=== PATIENT | male | born 1970 | race Caucasian/White ===

== ENCOUNTER 2018-06-04 02:17 | Emergency (ER) | payer SELFPAY ==
--- NOTE | 2018-06-04 02:33 | EDM.PDOC ---
ED HPI GENERAL MEDICAL PROBLEM - General Stated Complaint: ABD PAIN [id number] Time Seen by Provider: 06/04/18 02:25 Source of Information: Reports: Patient History Limitations: Reports: No Limitations - History of Present Illness INITIAL COMMENTS - FREE TEXT/NARRATIVE: This 47 yo male patient reports to the ED with lower abdominal pain. The patient reports that his symptoms started yesterday in the afternoon and have continued to get worse over the past 12 hours. The patient reports that he did take 3 Colace pills, but has not had any change in his symptoms. The patient reports being constipated about 10 years ago with similar symptoms. The patient reports he had a bowel movement on Sunday, but does not recall having one since that time. The patient reports most of his pain in in the left lower abdomen and left flank, but he also has some pain in the right lower quadrant. The patient reports no previous abdominal surgeries and no history of kidney stones. Onset Date: 06/03/18 Onset Time: 14:00 Duration: Constant, Getting Worse Location: Reports: Abdomen (lower abdomen), Back (left lower back) Quality: Reports: Ache, Dull Severity: Severe Improves with: Reports: None Worsens with: Reports: Other (palpation), Movement Context: Reports: Other Treatments [employer] UP MECH[employer]IC: Reports: Other Medication(s) (Colase) Left Lower Abdomen Pain Score (Numeric/FACES): 9 - Related Data Allergies Allergy/AdvReac Type Severity Reaction Status Date / Time No Known Allergies Allergy Verified 06/04/18 02:34 Home Meds: Home Meds Simvastatin 20 mg PO DAILY 04/03/15 [History] Triamterene/Hydrochlorothiazid [Triamterene-HCTZ 37.5-25 MG] 1 tab PO DAILY [History] metFORMIN [Glucophage] 500 mg PO DAILY 06/04/18 [History] ED ROS GENERAL - Review of Systems Review Of Systems: ROS reveals no pertinent complaints other than HPI. ED EXAM, GI/ABD - Physical Exam Exam: See Below Exam Limited By: No Limitations General Appearance: Alert, WD/WN, Moderate Distress Eyes: Bilateral: Normal Appearance, EOMI Ears: Normal External Exam, Normal Canal, Hearing Grossly Normal, Normal TMs Nose: Normal Inspection, Normal Mucosa, No Blood Throat/Mouth: Normal Inspection, Normal Lips, Normal Teeth, Normal Gums, Normal Oropharynx, Normal Voice, No Airway Compromise Head: Atraumatic, Normocephalic Neck: Normal Inspection, Supple, Non-Tender, Full Range of Motion Respiratory/Chest: No Respiratory Distress, Lungs Clear, Normal Breath Sounds, No Accessory Muscle Use, Chest Non-Tender Cardiovascular: Normal Peripheral Pulses, Regular Rate, Rhythm, No Edema, No Gallop, No JVD, No Murmur, No Rub GI/Abdominal Exam: Normal Bowel Sounds, Guarding, Tender (lower abdomen (left greater than right)) (Male) Exam: Deferred Rectal (Males) Exam: Deferred Back Exam: CVA Tenderness (L) Extremities: Normal Inspection, Normal Range of Motion, Non-Tender, Normal Capillary Refill, No Pedal Edema Neurological: Alert, Oriented, CN II-XII Intact, Normal Cognition Psychiatric: Normal Affect, Normal Mood Skin Exam: Warm, Dry, Intact, Normal Color, No Rash Lymphatic: No Adenopathy Course - Vital Signs Last Recorded V/S: Last Vital Signs Temp 37.1 C 06/04/18 04:44 Pulse 93 06/04/18 04:44 Resp 19 06/04/18 04:44 BP 126/82 06/04/18 04:44 Pulse Ox 100 06/04/18 04:44 - Orders/Labs/Meds Orders: Active Orders 24 hr Category Date Time Status CULTURE BLOOD [BC] Stat Lab 06/04/18 03:19 Received Labs: Laboratory Tests 06/04/18 06/04/18 06/04/18 Range/Units 02:21 02:32 02:32 WBC 16.7 H (5.0-10.0) 10^3/uL RBC 4.30 L (4.6-6.2) 10^6/uL Hgb 13.0 L (14.0-18.0) g/dL Hct 39.3 L (40.0-54.0) % MCV 91.4 (80-100) fL MCH 30.2 (27.0-34.0) pg MCHC 33.1 (33.0-35.0) g/dL Plt Count 246 (150-450) 10^3/uL Neut % (Auto) 81.8 H (42.2-75.2) % Lymph % (Auto) 8.0 L (20.5-50.1) % [place] % (Auto) 9.8 H (2-8) % Eos % (Auto) 0.2 L (1.0-3.0) % Baso % (Auto) 0.2 (0.0-1.0) % Sodium (135-145) mmol/L Potassium (3.6-5.0) mmol/L Chloride (101-111) mmol/L Carbon Dioxide (21.0-31.0) mmol/L Anion Gap BUN (7-18) mg/dL Creatinine (0.6-1.3) mg/dL Est Cr Clr Drug Dosing mL/min Estimated GFR (MDRD) BUN/Creatinine Ratio Glucose (74-105) mg/dL Lactic Acid (0.5-2.2) mmol/L Calcium (8.4-10.2) mg/dl Total Bilirubin (0.2-1.0) mg/dL AST (10-42) IU/L ALT (10-60) IU/L Alkaline Phosphatase (42-121) IU/L Total Protein (6.7-8.2) g/dl Albumin (3.2-5.5) g/dl Globulin Albumin/Globulin Ratio Amylase 46 (28-100) U/L Lipase 24 (22-51) U/L Urine Color Dark yellow (YELLOW) Urine Appearance Cloudy (CLEAR) Urine pH 6.5 (5.0-9.0) Ur Specific Bromide 1.020 (1.005-1.030) Urine Protein 30 H (NEGATIVE) Urine Glucose (UA) Negative (NEGATIVE) Urine Ketones Negative (NEGATIVE) Urine Occult Blood Negative (NEGATIVE) Urine Nitrite Negative (NEGATIVE) Urine Bilirubin Small H (NEGATIVE) Urine Urobilinogen 4.0 H (0.2-1.0) mg/dL Ur Leukocyte Esterase Negative (NEGATIVE) Urine RBC 0-5 /HPF Urine WBC 5-10 H (0-5/HPF) /HPF Ur Epithelial Cells Rare /HPF Calcium Oxalate Crystal Rare /HPF Amorphous Sediment Many (0/HPF) /HPF Urine Bacteria Rare (0-FEW/HPF) /HPF Urine Mucus Few H /LPF 06/04/18 06/04/18 Range/Units 02:32 03:19 WBC (5.0-10.0) 10^3/uL RBC (4.6-6.2) 10^6/uL Hgb (14.0-18.0) g/dL Hct (40.0-54.0) % MCV (80-100) fL MCH (27.0-34.0) pg MCHC (33.0-35.0) g/dL Plt Count (150-450) 10^3/uL Neut % (Auto) (42.2-75.2) % Lymph % (Auto) (20.5-50.1) % [place] % (Auto) (2-8) % Eos % (Auto) (1.0-3.0) % Baso % (Auto) (0.0-1.0) % Sodium 134 L (135-145) mmol/L Potassium 3.8 (3.6-5.0) mmol/L Chloride 101 (101-111) mmol/L Carbon Dioxide 24.0 (21.0-31.0) mmol/L Anion Gap 12.8 BUN 14 (7-18) mg/dL Creatinine 0.7 (0.6-1.3) mg/dL Est Cr Clr Drug Dosing 160.17 mL/min Estimated GFR (MDRD) > 60 BUN/Creatinine Ratio 20.00 Glucose 160 H (74-105) mg/dL Lactic Acid 1.9 (0.5-2.2) mmol/L Calcium 10.1 (8.4-10.2) mg/dl Total Bilirubin 1.4 H (0.2-1.0) mg/dL AST 38 (10-42) IU/L ALT 32 (10-60) IU/L Alkaline Phosphatase 58 (42-121) IU/L Total Protein 7.1 (6.7-8.2) g/dl Albumin 4.1 (3.2-5.5) g/dl Globulin 3.0 Albumin/Globulin Ratio 1.37 Amylase (28-100) U/L Lipase (22-51) U/L Urine Color (YELLOW) Urine Appearance (CLEAR) Urine pH (5.0-9.0) Ur Specific Bromide (1.005-1.030) Urine Protein (NEGATIVE) Urine Glucose (UA) (NEGATIVE) Urine Ketones (NEGATIVE) Urine Occult Blood (NEGATIVE) Urine Nitrite (NEGATIVE) Urine Bilirubin (NEGATIVE) Urine Urobilinogen (0.2-1.0) mg/dL Ur Leukocyte Esterase (NEGATIVE) Urine RBC /HPF Urine WBC (0-5/HPF) /HPF Ur Epithelial Cells /HPF Calcium Oxalate Crystal /HPF Amorphous Sediment (0/HPF) /HPF Urine Bacteria (0-FEW/HPF) /HPF Urine Mucus /LPF Meds: Medications Discontinued Medications Generic Name Dose Route Start Last Admin Trade Name Pakoq PRN Reason Stop Dose Admin Hydromorphone HCl 0.5 mg 06/04/18 04:37 06/04/18 04:42 Dilaudid IVPUSH 06/04/18 04:38 0.5 mg ONETIME ONE Administration Sodium Chloride 1,000 mls @ 999 mls/hr 06/04/18 03:09 06/04/18 03:14 Normal Saline IV 06/04/18 04:09 999 mls/hr .BOLUS ONE Administration Iopamidol 100 ml 06/04/18 03:02 06/04/18 03:56 Isovue-300 (61%) IVPUSH 06/04/18 03:03 100 ml ONETIME ONE Administration Morphine Sulfate 2 mg 06/04/18 03:09 06/04/18 03:14 Morphine IVPUSH 06/04/18 03:10 2 mg ONETIME ONE Administration Departure - Departure Time of Disposition: 04:55 Disposition: DC/Tfer to Acute Hospital 02 Condition: Serious Clinical Impression: Retroperitoneal hemorrhage - Discharge Information *PRESCRIPTION DRUG MONITORING PROGRAM REVIEWED*: Not Applicable *COPY OF PRESCRIPTION DRUG MONITORING REPORT IN PATIENT ANDRE: Not Applicable Forms: Interfacility Transfer EMTALA Care Plan Goals: Discussed the examination, history, lab and CT results with Dr. Benitez ([facility] Emergency Department). Dr. Benitez accepted the patient for continued evaluation and management. The patient will be transported by [facility]. - My Orders Last 24 Hours: My Active Orders 06/04/18 03:19 CULTURE BLOOD [BC] Stat - Assessment/Plan Last 24 Hours: My Active Orders 06/04/18 03:19 CULTURE BLOOD [BC] Stat
[2018-06-04 03:00] LABS: ANION GAP 12.8; CHLORIDE,CL 101 mmol/L (101-111); SODIUM,NA 134 mmol/L (135-145)
[2018-06-04] MEDS ORDERED: Iopamidol 612 MG/ML 100 ML Bottle IVPUSH ONE (03:02)
[2018-06-04] MEDS ORDERED: Sodium Chloride 0.9% 1,000 ML IV ONE (03:09)
[2018-06-04] MEDS ORDERED: Morphine 2 MG/ML Syringe IVPUSH ONE (03:09)
[2018-06-04] MEDS ORDERED: HYDROmorphone 0.5 MG/0.5 ML Syringe IVPUSH ONE (04:37)
[2018-06-04 04:45] VITALS: BP 126/82
== END 2018-06-04 05:25 ==
LOC: DL.ED 02:17
DX: R58 Hemorrhage, not elsewhere classified (principal); Z79.84 Long term (current) use of oral hypoglycemic drugs; Z79.899 Other long term (current) drug therapy
CPT/HCPCS: 36415; 74177; 80053; 81001; 82150; 83605; 83690; 85025; 85610; 87040; 96361; 96374; 96375; 99284; 99285; J1170; J2270; J7030; Q9967

== ENCOUNTER 2021-11-29 08:24 | Emergency (ER) | payer SELFPAY ==
[2021-11-29] MEDS ORDERED: Aspirin 81 MG Tab.Chew PO ONE (08:39)
[2021-11-29 09:05] VITALS: BP 194/95; PULSE 80
[2021-11-29 09:19] LABS: ANION GAP 17.2 mEq/L (7-13); CHLORIDE,CL 100 mmol/L (98-107); SODIUM,NA 138 mmol/L (136-145)
== END 2021-11-29 09:51 | disposition home or self-care (01) ==
LOC: DL.ED 08:24
DX: R07.9 Chest pain, unspecified (principal); K21.9 Gastro-esophageal reflux disease without esophagitis; I10 Essential (primary) hypertension; Z79.899 Other long term (current) drug therapy
CPT/HCPCS: 36415; 71045; 80053; 83605; 84484; 85025; 85379; 85610; 93005; 99285-25; A9270-GY

== ENCOUNTER 2022-03-30 05:27 | Day surgery (SDC) | payer OTHER ==
[2022-03-30] MEDS ORDERED: Midazolam 1 MG/ML 2 ML SDV IV ONE ×2 (05:28→07:05)
[2022-03-30] MEDS ORDERED: fentaNYL 100 MCG/2 ML SDV IV ONE ×3 (05:28→07:05)
[2022-03-30] MEDS ORDERED: Dextrose 5%-0.45% NaCl 1,000 ML IV SCH (05:30)
[2022-03-30] MEDS ORDERED: fentaNYL 100 MCG/2 ML SDV ONE (06:14)
[2022-03-30] MEDS ORDERED: Midazolam 1 MG/ML 2 ML SDV ONE (06:14)
[2022-03-30 09:12] VITALS: BP 121/80; PULSE 96
== END 2022-03-30 09:00 | disposition home or self-care (01) ==
LOC: DL.ENDO 05:27
PROVIDERS: ATTEND Internal Medicine Gastroenterology
DX: R10.10 Upper abdominal pain, unspecified (principal); E78.5 Hyperlipidemia, unspecified; I10 Essential (primary) hypertension; G47.33 Obstructive sleep apnea (adult) (pediatric); F12.90 Cannabis use, unspecified, uncomplicated; M19.90 Unspecified osteoarthritis, unspecified site; F17.210 Nicotine dependence, cigarettes, uncomplicated; E83.52 Hypercalcemia; R94.5 Abnormal results of liver function studies; E83.119 Hemochromatosis, unspecified; E66.01 Morbid (severe) obesity due to excess calories; Z72.89 Other problems related to lifestyle; Z87.19 Personal history of other diseases of the digestive system; Z20.822 Contact with and (suspected) exposure to COVID-19; Z53.09 Procedure and treatment not carried out because of other contraindication
CPT/HCPCS: 87635; J2250; J3010; J7042; U0002

== ENCOUNTER 2022-04-20 06:26 | Day surgery (SDC) | payer OTHER ==
[~2022-04-20 06:26] MED LIST: Dextrose 5%-0.45% NaCl 1,000 ML IV SCH; Sodium Chloride 0.9% 10 ML Syringe FLUSH PRN; Sodium Chloride 0.9% 10 ML Syringe FLUSH SCH
[2022-04-20] MEDS ORDERED: fentaNYL 100 MCG/2 ML SDV IV ONE ×3 (06:27→07:22)
[2022-04-20] MEDS ORDERED: Midazolam 1 MG/ML 2 ML SDV IV ONE ×3 (06:27→07:23)
[2022-04-20] MEDS ORDERED: Midazolam 1 MG/ML 2 ML SDV ONE (06:31)
[2022-04-20] MEDS ORDERED: fentaNYL 100 MCG/2 ML SDV ONE (06:31)
[2022-04-20 09:03] VITALS: BP 140/91; PULSE 75
== END 2022-04-20 09:30 | disposition home or self-care (01) ==
LOC: DL.ENDO 06:26
PROVIDERS: ATTEND Internal Medicine Gastroenterology
DX: K29.70 Gastritis, unspecified, without bleeding (principal); K29.80 Duodenitis without bleeding; E66.01 Morbid (severe) obesity due to excess calories; E78.5 Hyperlipidemia, unspecified; I10 Essential (primary) hypertension; G47.33 Obstructive sleep apnea (adult) (pediatric); F17.210 Nicotine dependence, cigarettes, uncomplicated; Z68.42 Body mass index [BMI] 45.0-49.9, adult
CPT/HCPCS: 87077; J2250; J3010; J7042

== ENCOUNTER 2022-05-02 05:56 | Day surgery (SDC) | payer OTHER ==
[~2022-05-02 05:56] MED LIST changes: -Dextrose 5%-0.45% NaCl 1,000 ML IV SCH; -Sodium Chloride 0.9% 10 ML Syringe FLUSH PRN
[2022-05-02] MEDS ORDERED: fentaNYL 100 MCG/2 ML SDV IV ONE ×3 (05:57→06:54)
[2022-05-02] MEDS ORDERED: Midazolam 1 MG/ML 2 ML SDV IV ONE ×7 (05:57→07:02)
[2022-05-02] MEDS ORDERED: Sodium Chloride 0.9% 10 ML Syringe FLUSH PRN (06:00)
[2022-05-02] MEDS ORDERED: Dextrose 5%-0.45% NaCl 1,000 ML IV SCH (06:00)
[2022-05-02] MEDS ORDERED: fentaNYL 100 MCG/2 ML SDV ONE (06:12)
[2022-05-02] MEDS ORDERED: Midazolam 1 MG/ML 2 ML SDV ONE (06:12)
[2022-05-02 09:40] VITALS: BP 135/69; PULSE 69
== END 2022-05-02 09:15 | disposition home or self-care (01) ==
LOC: DL.ENDO 05:56
PROVIDERS: ATTEND Internal Medicine Gastroenterology
DX: K59.00 Constipation, unspecified (principal); E66.01 Morbid (severe) obesity due to excess calories; I10 Essential (primary) hypertension; K21.9 Gastro-esophageal reflux disease without esophagitis; F12.90 Cannabis use, unspecified, uncomplicated; Z72.89 Other problems related to lifestyle; Z72.0 Tobacco use; Z68.42 Body mass index [BMI] 45.0-49.9, adult
CPT/HCPCS: 45378; J2250; J3010; J7042

== ENCOUNTER 2023-11-06 14:22 | Emergency (ER) | payer OTHER ==
[2023-11-06 15:17] VITALS: BP 156/100; PULSE 115
== END 2023-11-06 16:42 | disposition home or self-care (01) ==
LOC: DL.ED 14:22
DX: S43.101A Unspecified dislocation of right acromioclavicular joint, initial encounter (principal); E66.9 Obesity, unspecified; I10 Essential (primary) hypertension; Z86.16 Personal history of COVID-19; Z79.899 Other long term (current) drug therapy; W00.0XXA Fall on same level due to ice and snow, initial encounter
CPT/HCPCS: 73030-RT; 99283